=== PATIENT | female | born 1980 | race African-American/Black ===

== ENCOUNTER → 2016-09-13 | Outpatient (CLI) | payer BC ==
[~2016-09-13] MED LIST: AMOXICILLIN 8751 TAB PO; B-12; BUSPAR DIVIDOSE15 MG PO; CELEXA10 MG PO; CYANOCOBAL1000 MCG/1 IM; DIFLUCAN 100MG100 MG PO; FLEXERIL 1010 MG/TAB PO; HCTZ 25MG TAB25 MG PO; NORCO 325 MG-51 TAB PO; NORMODYNE100 MG PO; PERCOCET 325 MG1 TA2; PERCOCET 325 MG1 TA2 PO; PRENATAL VITAMI1 TA5 PO; PRINZIDE 12.5 M1 TAB PO; QUINAPRIL5 MG PO; SYNTHROID 0.0.025 MG PO; SYNTHROID0.1 MG/TAB PO; TOPROL XL 50MG50 MG PO; TOPROL XL100 MG PO; ULTRAM 50MG TAB50 MG PO; WELLBUTRIN 75MG75 MG PO; WELLBUTRIN XL300 M1 PO; ZOFRAN ODT8 MG PO
== END ==
LOC: COL.RAD 07:23
DX: R10.84 Generalized abdominal pain (principal); R14.3 Flatulence; Z98.84 Bariatric surgery status

== ENCOUNTER 2016-10-03 22:42 | Emergency (ER) | payer BC ==
[~2016-10-03] VITALS: Ht 167.6 cm; Wt 111.8 kg
[~2016-10-03 22:42] MED LIST changes: -BUSPAR DIVIDOSE15 MG PO; -CYANOCOBAL1000 MCG/1 IM; -PRINZIDE 12.5 M1 TAB PO; -SYNTHROID0.1 MG/TAB PO; -TOPROL XL100 MG PO; -ULTRAM 50MG TAB50 MG PO; -WELLBUTRIN XL300 M1 PO
[2016-10-03 22:50] VITALS: BP 132/59; TEMP 97.8
[2016-10-03] MEDS ORDERED: TOPROL XL100 MG PO (22:54)
[2016-10-03] MEDS ORDERED: WELLBUTRIN XL300 M1 PO (22:54)
[2016-10-03] MEDS ORDERED: SYNTHROID0.1 MG/TAB PO (22:54)
[2016-10-03] MEDS ORDERED: BUSPAR DIVIDOSE15 MG PO (22:55)
[2016-10-03] MEDS ORDERED: PRINZIDE 12.5 M1 TAB PO (22:55)
[2016-10-03] MEDS ORDERED: CYANOCOBAL1000 MCG/1 IM (22:56)
[2016-10-03] MEDS ORDERED: ULTRAM 50MG TAB50 MG PO (23:11)
[2016-10-04 00:10] VITALS: PULSE 54
== END 2016-10-04 00:10 | disposition home or self-care (01) ==
LOC: COL.ER 22:42
DX: M25.572 Pain in left ankle and joints of left foot (principal); I10 Essential (primary) hypertension; E03.9 Hypothyroidism, unspecified; F41.9 Anxiety disorder, unspecified; F17.210 Nicotine dependence, cigarettes, uncomplicated; Z90.710 Acquired absence of both cervix and uterus; Z98.890 Other specified postprocedural states; Z98.84 Bariatric surgery status; X58.XXXA Exposure to other specified factors, initial encounter; Y92.009 Unspecified place in unspecified non-institutional (private) residence as the place of occurrence of the external cause

== ENCOUNTER 2018-03-16 11:38 | Emergency (ER) | payer BC ==
[~2018-03-16] VITALS: Ht 167.6 cm; Wt 108.2 kg
[~2018-03-16 11:38] MED LIST changes: +BUSPAR DIVIDOSE15 MG PO; +CYANOCOBAL1000 MCG/1 IM; +PRINZIDE 12.5 M1 TAB PO; +SYNTHROID0.1 MG/TAB PO; +TOPROL XL100 MG PO; +ULTRAM 50MG TAB50 MG PO; +WELLBUTRIN XL300 M1 PO
[2018-03-16 11:46] VITALS: TEMP 98.4
[2018-03-16 13:17] LABS: BASO % 0.7 % (0.0-2.0); EOS # 0.1 (0.0-0.7); GRAN # 3.1 (1.4-6.5); GRAN % 52.4 % (42.2-75.2); HEMOGLOBIN 11.7 g/dl (12.5-16.0); LYMPH # 2.2 (1.2-3.4); LYMPH % 37.6 % (20.0-51.0); MEAN CELL VOLUME 87 fl (80.0-100.0); MEAN CORPUSCULAR HEMOGLOBIN 28 pg (27.0-31.0); MEAN CORPUSCULAR HGB CONC 32 g/dl (33.0-37.0); MEAN PLATELET VOLUME 10.6 fl (7.4-10.4); MONO # 0.5 (0.1-0.6); MONO % 8.1 % (1.7-9.3); PLATELET COUNT 185 K/mm3 (130-400); RED BLOOD COUNT 4.15 M/mm3 (4.10-5.30); REDCELL DISTRIBUTION WIDTH-CV 13.7 % (11.5-14.5)
[2018-03-16 13:18] LABS: HEMATOCRIT 36.1 % (37.0-47.0)
[2018-03-16 13:30] LABS: ALANINE AMINOTRANSFERASE 36 U/L (9-52); ALBUMIN 3.8 gm/dL (3.5-5.0); ALKALINE PHOSPHATASE 76 U/L (50-136); ANION GAP 4 mmol/L (7-16); AST,SGOT 27 U/L (15-37); BILIRUBIN,TOTAL 0.2 mg/dL (0.0-1.0); BLOOD UREA NITROGEN 16 mg/dL (7-17); C-REACTIVE PROTEIN 0.6 mg/dL (0.0-0.9); CALCIUM 8.6 mg/dL (8.4-10.2); CARBON DIOXIDE 30 mmol/L (22-30); CHLORIDE 104 mmol/L (98-107); GLUCOSE 90 mg/dL (74-106); POTASSIUM 3.7 mmol/L (3.4-5.0); SODIUM 138 mmol/L (137-145)
[2018-03-16 13:39] LABS: TROPONIN-I < 0.012 ng/mL (0.000-0.034)
[2018-03-16] MEDS ORDERED: NORCO 325 MG-51 TAB PO (15:10)
[2018-03-16 15:30] VITALS: BP 112/65; PULSE 56
== END 2018-03-16 15:31 | disposition home or self-care (01) ==
LOC: COL.ER 11:38
PROVIDERS: Physician Assistant
DX: M25.511 Pain in right shoulder (principal); R10.11 Right upper quadrant pain

== ENCOUNTER 2019-04-25 10:57 | Emergency (ER) | payer BC ==
[~2019-04-25] VITALS: Ht 167.6 cm; Wt 108.2 kg
[2019-04-25 11:05] VITALS: BP 151/83
[2019-04-25] MEDS ORDERED: PROZAC 10MG10 MG PO (11:14)
[2019-04-25] MEDS ORDERED: NAPROSYN500 MG PO (11:45)
[2019-04-25] MEDS ORDERED: TAMIFLU 75MG75 MG PO (11:45)
[2019-04-25 12:07] VITALS: PULSE 55; TEMP 97.7
== END 2019-04-25 12:12 | disposition home or self-care (01) ==
LOC: COL.ER 10:57
DX: J11.1 Influenza due to unidentified influenza virus with other respiratory manifestations (principal)

== ENCOUNTER → 2019-04-27 | Outpatient (CLI) | payer BC ==
[~2019-04-27] MED LIST changes: +NAPROSYN500 MG PO; +PROZAC 10MG10 MG PO; +TAMIFLU 75MG75 MG PO
== END ==
LOC: MC.RAD 02-26 11:30
DX: Z12.31 Encounter for screening mammogram for malignant neoplasm of breast (principal)

== ENCOUNTER 2019-12-02 05:45 | Emergency (ER) | payer BC ==
[~2019-12-02] VITALS: Ht 167.6 cm; Wt 113.6 kg
[2019-12-02 05:58] VITALS: BP 138/93; TEMP 97.6
[2019-12-02 07:57] LABS: BASO % 0.7 % (0.0-2.0); EOS # 0.1 (0.0-0.7); EOS % 2.4 % (0-4.0); GRAN % 53.9 % (42.2-75.2); HEMOGLOBIN 11.1 g/dl (12.5-16.0); LYMPH # 1.9 (1.2-3.4); LYMPH % 34.8 % (20.0-51.0); MEAN CELL VOLUME 87 fl (80.0-100.0); MEAN CORPUSCULAR HEMOGLOBIN 27 pg (27.0-31.0); MEAN CORPUSCULAR HGB CONC 31 g/dl (33.0-37.0); MEAN PLATELET VOLUME 11.1 fl (7.4-10.4); MONO # 0.4 (0.1-0.6); MONO % 7.8 % (1.7-9.3); PLATELET COUNT 157 K/mm3 (130-400); RED BLOOD COUNT 4.06 M/mm3 (4.10-5.30)
[2019-12-02 08:00] LABS: HEMATOCRIT 35.3 % (37.0-47.0)
[2019-12-02 08:10] LABS: ALANINE AMINOTRANSFERASE 16 U/L (4-34); ALBUMIN 3.8 gm/dL (3.5-5.0); ALKALINE PHOSPHATASE 78 U/L (50-136); ANION GAP 6 mmol/L (7-16); AST,SGOT 24 U/L (15-37); BILIRUBIN,TOTAL 0.3 mg/dL (0.0-1.0); BLOOD UREA NITROGEN 15 mg/dL (7-17); CALCIUM 8.5 mg/dL (8.4-10.2); CARBON DIOXIDE 27 mmol/L (22-30); CHLORIDE 104 mmol/L (98-107); CREATININE, serum 0.88 (0.52-1.25); GLUCOSE 87 mg/dL (74-106); MAGNESIUM 1.9 mg/dL (1.6-2.3); POTASSIUM 3.5 mmol/L (3.4-5.0); SODIUM 137 mmol/L (137-145); TOTAL PROTEIN 6.9 gm/dL (6.4-8.2)
[2019-12-02 08:23] LABS: TROPONIN-I < 0.012 ng/mL (0.000-0.035)
[2019-12-02 09:25] VITALS: PULSE 51
== END 2019-12-02 09:25 | disposition home or self-care (01) ==
LOC: COL.ER 05:45
PROVIDERS: Emergency Medicine
DX: R60.9 Edema, unspecified (principal); E03.9 Hypothyroidism, unspecified; I10 Essential (primary) hypertension; F17.210 Nicotine dependence, cigarettes, uncomplicated; Z90.710 Acquired absence of both cervix and uterus; Z98.51 Tubal ligation status; Z98.84 Bariatric surgery status; Z79.890 Hormone replacement therapy

== ENCOUNTER 2020-07-18 19:21 | Emergency (ER) | payer BC ==
[~2020-07-18] VITALS: Ht 167.6 cm; Wt 118.2 kg
[2020-07-18 19:34] VITALS: TEMP 98.3
[2020-07-18 20:29] LABS: CREATININE, serum 0.99 (0.52-1.25)
[2020-07-18 20:30] LABS: ALBUMIN 4.2 gm/dL (3.5-5.0); BILIRUBIN,TOTAL 0.3 mg/dL (0.0-1.0); CALCIUM 8.7 mg/dL (8.4-10.2); POTASSIUM 3.9 mmol/L (3.4-5.0); TOTAL PROTEIN 8.3 gm/dL (6.4-8.2)
[2020-07-18 20:35] LABS: COLLECTION METHOD CLEAN CATCH
[2020-07-18 20:40] LABS: BASO % 0.7 % (0.0-2.0); EOS # 0.1 (0.0-0.7); EOS % 2.2 % (0-4.0); GRAN # 2.9 (1.4-6.5); GRAN % 49.6 % (42.2-75.2); HEMOGLOBIN 12.2 g/dl (12.5-16.0); LYMPH # 2.3 (1.2-3.4); LYMPH % 38.5 % (20.0-51.0); MEAN CELL VOLUME 87 fl (80.0-100.0); MEAN CORPUSCULAR HEMOGLOBIN 27 pg (27.0-31.0); MEAN CORPUSCULAR HGB CONC 31 g/dl (33.0-37.0); MEAN PLATELET VOLUME 10.5 fl (7.4-10.4); MONO # 0.5 (0.1-0.6); MONO % 8.7 % (1.7-9.3); PLATELET COUNT 190 K/mm3 (130-400); RED BLOOD COUNT 4.61 M/mm3 (4.10-5.30); REDCELL DISTRIBUTION WIDTH-CV 14.3 % (11.5-14.5)
[2020-07-18 20:58] LABS: MUCOUS Present /lpf; PH 5 (5-8); SQUAMOUS EPITHELIAL 0-2 /hpf; URINE APPEARANCE Hazy; URINE BACTERIA None Seen /hpf; URINE BILIRUBIN Negative (NEGATIVE); URINE BLOOD Negative (NEGATIVE); URINE COLOR Yellow; URINE GLUCOSE Negative (NEGATIVE); URINE KETONE Negative (NEGATIVE); URINE LEUKOCYTE ESTERASE Negative (NEGATIVE); URINE NITRATE Negative (NEGATIVE); URINE PROTEIN(semi-quant) Negative (NEGATIVE); URINE UROBILINOGEN Negative (NEGATIVE)
[2020-07-18 21:25] VITALS: BP 144/78; PULSE 80
== END 2020-07-18 21:25 | disposition home or self-care (01) ==
LOC: COL.ER 19:21
PROVIDERS: Emergency Medicine
DX: R53.81 Other malaise (principal); J06.9 Acute upper respiratory infection, unspecified; R50.9 Fever, unspecified; T50.B95A Adverse effect of other viral vaccines, initial encounter; F17.210 Nicotine dependence, cigarettes, uncomplicated; Z88.0 Allergy status to penicillin

== ENCOUNTER → 2020-08-14 | Outpatient (CLI) | payer BC | LOC: MC.RAD 08:41 | DX: Z12.31 Encounter for screening mammogram for malignant neoplasm of breast (principal) ==

== ENCOUNTER → 2021-08-23 | Outpatient (CLI) | payer BC | LOC: MC.RAD 09:00 | DX: Z12.31 Encounter for screening mammogram for malignant neoplasm of breast (principal) ==

== ENCOUNTER 2021-12-20 01:17 | Emergency (ER) | payer BC ==
[~2021-12-20] VITALS: Ht 165.1 cm; Wt 98.6 kg
[2021-12-20 03:30] VITALS: TEMP 97.1
[2021-12-20 03:35] LABS: BASO % 0.3 % (0.0-2.0); EOS # 0.1 K/mm3 (0.0-0.7); GRAN # 3.2 K/mm3 (1.4-6.5); GRAN % 50.1 % (42.2-75.2); HEMATOCRIT 37.3 % (37.0-47.0); HEMOGLOBIN 12.4 g/dl (12.5-16.0); LYMPH # 2.4 K/mm3 (1.2-3.4); LYMPH % 37.8 % (20.0-51.0); MEAN CELL VOLUME 86 fl (80.0-100.0); MEAN CORPUSCULAR HEMOGLOBIN 29 pg (27-31); MEAN CORPUSCULAR HGB CONC 33 g/dl (33.0-37.0); MEAN PLATELET VOLUME 10.7 fl (7.4-10.4); MONO # 0.7 K/mm3 (0.1-0.6); MONO % 10.3 % (1.7-9.3); PLATELET COUNT 167 K/mm3 (130-400); RED BLOOD COUNT 4.32 M/mm3 (4.10-5.30); REDCELL DISTRIBUTION WIDTH-CV 13.5 % (11.5-14.5)
[2021-12-20 03:38] LABS: ALBUMIN 3.5 gm/dL (3.5-5.0); BILIRUBIN,TOTAL 0.5 mg/dL (0.2-1.2); CALCIUM 8.4 mg/dL (8.4-10.2); CREATININE, serum 0.93 mg/dL (0.57-1.11); TOTAL PROTEIN 6.9 gm/dL (6.2-8.1)
[2021-12-20 03:41] LABS: POTASSIUM 2.8 mmol/L (3.5-4.5)
[2021-12-20] MEDS ORDERED: K-DUR20 MEQ PO (03:59)
[2021-12-20 04:38] LABS: CLOSTRIDIUM DIFF A/B NEG; CLOSTRIDIUM DIFF A/B INTERP No C.diff present
[2021-12-20 04:51] VITALS: BP 154/78; PULSE 80
[2022-01-01 01:19] LABS: OVA AND PARASITE EXAM Negative (Negative)
== END 2021-12-20 04:51 | disposition home or self-care (01) ==
LOC: COL.ER 01:17
PROVIDERS: Emergency Medicine
DX: E87.6 Hypokalemia (principal); Z20.822 Contact with and (suspected) exposure to COVID-19; Z28.310 Unvaccinated for COVID-19
CPT/HCPCS: J1885; J7030

== ENCOUNTER → 2023-08-28 | Outpatient (CLI) | payer BC ==
[~2023-08-28] MED LIST changes: +CEPHALEXIN500 M1 PO; +K-DUR20 MEQ PO
== END ==
LOC: MC.RAD 08:00
DX: Z12.31 Encounter for screening mammogram for malignant neoplasm of breast (principal)